=== PATIENT | male | born 1980 | race Caucasian/White ===

== ENCOUNTER 2018-02-05 12:39 | Emergency (ER) | payer SELFPAY ==
[2018-02-05] MEDS ORDERED: Lidocaine/EPINEPHrine/Tetracaine Soln 1 ML TOP ONE (12:53)
[2018-02-05] MEDS ORDERED: Diphtheria,Pertussis(Acell),Tetanus Vaccine 0.5 ML Syringe IM ONE (13:15)
--- NOTE | 2018-02-05 13:18 | EDM.PDOC ---
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 Patient's is not up-to-date with tetanus he denies any other injuries, or any numbness or tingling. Review of systems: As per history of present illness and below otherwise all systems reviewed and negative. Past medical history: As per history of present illness and as reviewed below otherwise noncontributory. Surgical history: As per history of present illness and as reviewed below otherwise noncontributory. Social history: No reported history of drug or alcohol abuse. Family history: As per history of present illness and as reviewed below otherwise noncontributory. Physical exam: General: Well developed, well nourished in NAD HEENT: Atraumatic, normocephalic, pupils reactive, negative for conjunctival pallor or scleral icterus, mucous membranes moist, throat clear, neck supple, nontender, trachea midline. Lungs: Clear to auscultation, breath sounds equal bilaterally, chest nontender. Heart: S1S2, regular, negative for clicks, rubs, or JVD. Abdomen: Soft, nondistended, nontender. Negative for masses or hepatosplenomegaly. Negative for costovertebral tenderness. Pelvis: Stable nontender. Genitourinary: Deferred. Rectal: Deferred. Extremities: Left distal anterior thigh with a 4 cm superficial transverse laceration without any active bleeding, negative for cords or calf pain. Neurovascular unremarkable. Neuro: Awake, alert, oriented. Cranial nerves II through XII unremarkable. Cerebellum unremarkable. Motor and sensory unremarkable throughout. Exam nonfocal. Diagnostics: [] Therapeutics: []Tetanus status updated, wound cleaned and dressed with bacitracin and gauze Impression: []Superficial laceration left anterior distal thigh Plan: []Keep wound clean, radha dressing twice a day use Neosporin return if any symptoms worsen such as fevers redness or drainage from the wound. Definitive disposition and diagnosis as appropriate pending reevaluation and review of above. - Related Data Allergies Allergy/AdvReac Type Severity Reaction Status Date / Time acetaminophen Allergy Stomach Verified 02/05/18 12:54 Upset ibuprofen Allergy Stomach Verified 02/05/18 12:54 Upset lactose Allergy Diarrhea Verified 02/05/18 12:54 Home Meds: Home Meds Multivit-Min/Iron Fum/Folic AC [[id number]-[id number]-Twtkpamd Tablet] 1 tab 02/05/18 [ History] ED ROS GENERAL - Review of Systems Review Of Systems: ROS reveals no pertinent complaints other than HPI. ED EXAM, SKIN/RASH Exam: See Below (See history of present illness) Course - Orders/Labs/Meds Orders: Active Orders 24 hr Category Date Time Status Vaccines to be Administered [RC] PER UNIT ROUTINE Care 02/05/18 13:15 Active Meds: Medications Discontinued Medications Generic Name Dose Route Start Last Admin Trade Name Freannette PRN Reason Stop Dose Admin Bacitracin Confirm 02/05/18 13:42 Bacitracin Oint 1 Gm Administered 02/05/18 13:43 Dose 1 dose .ROUTE .STK-MED ONE Diphtheria/Tetanus/Acell Pertussis 0.5 ml 02/05/18 13:15 Adacel IM 02/05/18 13:16 .ONCE ONE Lidocaine/Tetracaine 3 ml 02/05/18 12:53 Let Soln TOP 02/05/18 12:54 ONETIME ONE Departure - Departure Time of Disposition: 13:16 Disposition: Home, Self-Care 01 Condition: Good Clinical Impression: Thigh laceration Qualifiers: Encounter type: initial encounter Laterality: left Qualified Code(s): S71.112A - Laceration without foreign body, left thigh, initial encounter - Discharge Information *PRESCRIPTION DRUG MONITORING PROGRAM REVIEWED*: Not Applicable Instructions: Laceration Care, Adult, [id number] Referrals: PCP,None [Primary Care Provider] - Forms: ED Department Discharge Additional Instructions: The following information is given to patients seen in the emergency department who are being discharged to home. This information is to outline your options for follow-up care. We provide all patients seen in our emergency department with a follow-up referral. The need for follow-up, as well as the timing and circumstances, are variable depending upon the specifics of your emergency department visit. If you don't have a primary care physician on staff, we will provide you with a referral. We always advise you to contact your personal physician following an emergency department visit to inform them of the circumstance of the visit and for follow-up with them and/or the need for any referrals to a consulting specialist. The emergency department will also refer you to a specialist when appropriate. This referral assures that you have the opportunity for follow-up care with a specialist. All of these measure are taken in an effort to provide you with optimal care, which includes your follow-up. Under all circumstances we always encourage you to contact your private physician who remains a resource for coordinating your care. When calling for follow-up care, please make the office aware that this follow-up is from your recent emergency room visit. If for any reason you are refused follow-up, please contact the [facility] Emergency Department at and asked to speak to the emergency department charge nurse. keep wounds clean, Neosporin and dressing changes twice a day [facility] [address] [place] [id number] - My Orders Last 24 Hours: My Active Orders 02/05/18 13:15 Vaccines to be Administered [RC] PER UNIT ROUTINE - Assessment/Plan Last 24 Hours: My Active Orders 02/05/18 13:15 Vaccines to be Administered [RC] PER UNIT ROUTINE
[2018-02-05] MEDS ORDERED: Bacitracin Oint 1 GM U/D Packet ONE (13:42)
== END 2018-02-05 13:56 | disposition home or self-care (01) ==
LOC: MW.ED 12:39
DX: S71.112A Laceration without foreign body, left thigh, initial encounter (principal); Z88.6 Allergy status to analgesic agent; Z91.011 Allergy to milk products; Z23 Encounter for immunization; W26.8XXA Contact with other sharp object(s), not elsewhere classified, initial encounter
CPT/HCPCS: 90471; 90715; 99282-25

== ENCOUNTER 2018-12-31 15:33 | Emergency (ER) | payer SELFPAY ==
--- NOTE | 2018-12-31 15:42 | EDM.PDOC ---
ED HPI GENERAL MEDICAL PROBLEM - General Chief Complaint: General Stated Complaint: COLD SWEATS Time Seen by Provider: 12/31/18 15:35 Source of Information: Reports: Patient History Limitations: Reports: No Limitations - History of Present Illness INITIAL COMMENTS - FREE TEXT/NARRATIVE: History of present illness: []Patient started having the chills and feeling like he is ill last night. Patient denies any fevers, vomiting, diarrhea, cough, congestion, shortness of breath, abdominal or back pain, cold symptoms or urinary discomfort. He has multiple small abscesses he describes as acne that he pops himself at home and popped one last night on the back of his neck. Patient feels this may have brought on the symptoms. He has no neck pain or drainage from the wound at this time. Review of systems: As per history of present illness and below otherwise all systems reviewed and negative. Past medical history: As per history of present illness and as reviewed below otherwise noncontributory. Surgical history: As per history of present illness and as reviewed below otherwise noncontributory. Social history: No reported history of drug or alcohol abuse. Family history: As per history of present illness and as reviewed below otherwise noncontributory. Physical exam: General: Well developed, well nourished in NAD HEENT: Atraumatic, normocephalic, pupils reactive, negative for conjunctival pallor or scleral icterus, mucous membranes moist, throat clear, neck supple, nontender, small punctate pustule on left lateral neck there is no surrounding erythema or drainage trachea midline. Lungs: Clear to auscultation, breath sounds equal bilaterally, chest nontender. Heart: S1S2, regular, negative for clicks, rubs, or JVD. No rhonchi or wheezing , no chest wall retractions No murmurs Abdomen: NABS, Soft, nondistended, nontender. Negative for masses or hepatosplenomegaly. Negative for costovertebral tenderness. Pelvis: Stable nontender. Genitourinary: Deferred. Rectal: Deferred. Extremities: Atraumatic, negative for cords or calf pain. Neurovascular unremarkable. Neuro: Awake, alert, oriented. Cranial nerves II through XII unremarkable. Cerebellum unremarkable. Motor and sensory unremarkable throughout. Exam nonfocal. Skin:warm and dry Diagnostics: Blood cultures, CBC, chemistry Therapeutics: Declined all meds ED Course: Stable Impression: Encounter for medical screening exam Prescriptions: None Plan: Take meds as directed, follow up with your primary care physician, return to ER if symptoms worsen or change. Definitive disposition and diagnosis as appropriate pending reevaluation and review of above. headache Pain Score (Numeric/FACES): 7 - Related Data Allergies Allergy/AdvReac Type Severity Reaction Status Date / Time acetaminophen Allergy Stomach Verified 12/31/18 15:47 Upset ibuprofen Allergy Stomach Verified 12/31/18 15:47 Upset lactose Allergy Diarrhea Verified 12/31/18 15:47 Home Meds: Home Meds . [No Known Home Meds] 12/31/18 [History] Past Medical History - Past Health History Medical/Surgical History: Denies Medical/Surgical History Psychiatric History: Reports: None - Infectious Disease History Infectious Disease History: Reports: None - Past Surgical History Musculoskeletal Surgical History: Reports: Other (See Below) Other Musculoskeletal Surgeries/Procedures:: tendons L little finger Social & Family History - Family History Family Medical History: Noncontributory ED ROS GENERAL - Review of Systems Review Of Systems: ROS reveals no pertinent complaints other than HPI. ED EXAM, GENERAL - Physical Exam Exam: See Below (See history of present illness) Course - Vital Signs Last Recorded V/S: Last Vital Signs Temp 96.9 F 12/31/18 15:47 Pulse 88 12/31/18 15:47 Resp 16 12/31/18 15:47 BP 119/70 12/31/18 15:47 Pulse Ox 93 L 12/31/18 15:47 - Orders/Labs/Meds Orders: Active Orders 24 hr Category Date Time Status COMPREHENSIVE METABOLIC PN,CMP [CHEM] Stat Lab 12/31/18 16:09 Received CULTURE BLOOD [BC] Stat Lab 12/31/18 16:09 Received CULTURE BLOOD [BC] Stat Lab 12/31/18 16:09 Received Blood Culture x2 Reflex Set [OM.PC] Stat Oth 12/31/18 15:59 Ordered Labs: Laboratory Tests 12/31/18 Range/Units 16:09 WBC 5.86 (4.0-11.0) K/uL RBC 5.22 (4.50-5.90) M/uL Hgb 15.3 (13.0-17.0) g/dL Hct 45.8 (38.0-50.0) % MCV 87.7 (80.0-98.0) fL MCH 29.3 (27.0-32.0) pg MCHC 33.4 (31.0-37.0) g/dL RDW Std Deviation 41.8 (28.0-62.0) fl RDW Coeff of Elisha 13 (11.0-15.0) % Plt Count 132 L (150-400) K/uL MPV 10.00 (7.40-12.00) fL Neut % (Auto) 71.0 (48.0-80.0) % Lymph % (Auto) 19.6 (16.0-40.0) % Kenton % (Auto) 8.5 (0.0-15.0) % Eos % (Auto) 0.7 (0.0-7.0) % Baso % (Auto) 0.2 (0.0-1.5) % Neut # (Auto) 4.2 (1.4-5.7) K/uL Lymph # (Auto) 1.2 (0.6-2.4) K/uL Kenton # (Auto) 0.5 (0.0-0.8) K/uL Eos # (Auto) 0.0 (0.0-0.7) K/uL Baso # (Auto) 0.0 (0.0-0.1) K/uL Nucleated RBC % 0.0 /100WBC Nucleated RBCs # 0 K/uL Departure - Departure Time of Disposition: 16:33 Disposition: Home, Self-Care 01 Condition: Good Clinical Impression: Encounter for medical screening examination - Discharge Information *PRESCRIPTION DRUG MONITORING PROGRAM REVIEWED*: No *COPY OF PRESCRIPTION DRUG MONITORING REPORT IN PATIENT PRISCILLA: No Referrals: PCP,None [Primary Care Provider] - Forms: ED Department Discharge Additional Instructions: The following information is given to patients seen in the emergency department who are being discharged to home. This information is to outline your options for follow-up care. We provide all patients seen in our emergency department with a follow-up referral. The need for follow-up, as well as the timing and circumstances, are variable depending upon the specifics of your emergency department visit. If you don't have a primary care physician on staff, we will provide you with a referral. We always advise you to contact your personal physician following an emergency department visit to inform them of the circumstance of the visit and for follow-up with them and/or the need for any referrals to a consulting specialist. The emergency department will also refer you to a specialist when appropriate. This referral assures that you have the opportunity for follow-up care with a specialist. All of these measure are taken in an effort to provide you with optimal care, which includes your follow-up. Under all circumstances we always encourage you to contact your private physician who remains a resource for coordinating your care. When calling for follow-up care, please make the office aware that this follow-up is from your recent emergency room visit. If for any reason you are refused follow-up, please contact the [facility] Emergency Department at and asked to speak to the emergency department charge nurse. [facility] [address] [place] [id number] - My Orders Last 24 Hours: My Active Orders 12/31/18 15:59 Blood Culture x2 Reflex Set [OM.PC] Stat 12/31/18 16:09 COMPREHENSIVE METABOLIC PN,CMP [CHEM] Stat CULTURE BLOOD [BC] Stat CULTURE BLOOD [BC] Stat - Assessment/Plan Last 24 Hours: My Active Orders 12/31/18 15:59 Blood Culture x2 Reflex Set [OM.PC] Stat 12/31/18 16:09 COMPREHENSIVE METABOLIC PN,CMP [CHEM] Stat CULTURE BLOOD [BC] Stat CULTURE BLOOD [BC] Stat
[2018-12-31 16:51] LABS: CHLORIDE,CL 101 mmol/L (98-107); SODIUM,NA 136 mmol/L (136-148)
== END 2018-12-31 17:20 | disposition home or self-care (01) ==
LOC: MW.ED 15:33
DX: Z00.00 Encounter for general adult medical examination without abnormal findings (principal)
CPT/HCPCS: 36415; 80053; 85025; 87040; 99283; 99284